=== PATIENT | female | born 1985 | race Caucasian/White ===

== ENCOUNTER 2019-06-22 20:40 | Emergency (ER) | payer BC ==
[2019-06-22 20:56] VITALS: BP 121/78
--- NOTE | 2019-06-22 21:19 | UC ---
Complaint Female HPI - HPI Summary HPI Summary: 33yo female presenting with "feeling off" the past few days. States period started last Friday 06/15 and "it was a thicker flow and a couple days longer than usual" but now almost gone. Patient also notes intermittent aching in lower abd more on R side throughout this menstrual cycle. Denies any currently. States this is not usual for her. Denies abnormal discharge, itching, vaginal pain. Denies urinary symptoms. Notes "looser BMs" with every other BM for the last week. Notes nausea yesterday. Denies vomiting. Denies fever and chills. Patient states she is currently trying to become . H/o miscarriage in 2007. Patient also notes that she took at home test this morning which was negative but requests another tonight. - History Of Current Complaint Chief Complaint: UCGU Stated Complaint: STOMACH ISSUE Time Seen by Provider: 06/22/19 21:14 Hx Obtained From: Patient Hx Last Menstrual Period: 06/15/19 Pain Intensity: 0 - Allergies/Home Medications Allergies/Adverse Reactions: Allergies Allergy/AdvReac Type Severity Reaction Status Date / Time No Known Allergies Allergy Verified 06/22/19 20:57 Home Medications: Home Medications NK [No Home Medications Reported] 06/22/19 [History Confirmed 06/22/19] PMH/Surg Hx/FS Hx/Imm Hx - Surgical History Surgical History: Yes Surgery Procedure, Year, and Place: wisdom teeth - Social History Alcohol Use: None Substance Use Type: None Smoking Status (MU): Never Smoked Tobacco Review of Systems All Other Systems Reviewed And Are Negative: Yes Constitutional: Positive: Negative. Negative: Fever, Chills ENT: Positive: Negative Respiratory: Positive: Negative Cardiovascular: Positive: Negative Gastrointestinal: Positive: Abdominal Pain - lower abd aching last week during period, Diarrhea - loose stool past few days, Nausea - yesterday Genitourinary: Positive: Negative Musculoskeletal: Positive: Negative Neurological: Positive: Negative Physical Exam Triage Information Reviewed: Yes Appearance: Well-Appearing, No Pain Distress, Well-Nourished Vital Signs: Initial Vital Signs Temp 98.8 F 06/22/19 20:47 Pulse 75 06/22/19 20:47 Resp 15 06/22/19 20:47 BP 121/78 06/22/19 20:47 Pulse Ox 100 01/05/20 20:47 Lab Results 06/22/19 06/22/19 Range/Units 21:09 21:11 POC Urine Color Yellow POC Urine Clarity Clear POC Urine pH 5.5 (5-9) POC Ur Specif [place] <= 1.005 L (1.010-1.030) POC Urine Protein Negative (Negative) POC Ur Glucose (UA) Negative (Negative) POC Urine Ketones Negative (Negative) POC Urine Blood Trace-intact (Negative) POC Urine Nitrite Negative (Negative) POC Urine Bilirubin Negative (Negative) POC Urine Urobilinogen 0.2 (Negative) POC U Leukocyte Esteras Negative (Negative) POC Ur Test Negative (Negative) Vital Signs Reviewed: Yes Eyes: Positive: Conjunctiva Clear ENT: Positive: Hearing grossly normal Neck: Positive: Supple Respiratory Exam: Normal Respiratory: Positive: Lungs clear, Normal breath sounds, No respiratory distress Cardiovascular Exam: Normal Cardiovascular: Positive: RRR Abdominal Exam: Normal Abdomen Description: Positive: Nontender, No Organomegaly, Soft. Negative: CVA Tenderness (R), CVA Tenderness (L), Distended, Guarding, McBurney's Point Tenderness Bowel Sounds: Positive: Present - BSx4 Neurological: Positive: Alert Psychological: Positive: Age Appropriate Behavior Complaint Female Dx - Course Course Of Treatment: Discussed likely symptoms caused by menstrual cycle. No current abd pain, negative UA, negative , and VS normal. Instructed to incr fluid intake and fiber to help relieve diarrhea. Instructed to follow up with physician referral and/or OBGYN referral for further evaluation if desired. Instructed to go to ED with any new or worsening symptoms. Patient voiced understanding and agreed with treatment plan. - Differential Dx/Diagnosis Provider Diagnosis: Abnormal menstrual cycle, Acute diarrhea, Encounter for test, result negative Discharge ED - Sign-Out/Discharge Documenting (check all that apply): Patient Departure All imaging exams completed and their final reports reviewed: No Studies - Discharge Plan Condition: Stable Disposition: HOME Patient Education Materials: Acute Diarrhea (ED), Acute Abdominal Pain (ED) Referrals: Amanda Ashton MD [Medical Doctor] - If Needed [facility] [place] [facility] [place]Outside] Additional Instructions: As discussed, your urine is negative for infection today. You urine test was also negative. Increase your fluid and fiber intake to help symptoms of diarrhea. Follow up with the physician referral or the OBGYN referral listed below if symptoms persist. Go to the emergency room if you experience any new or worsening symptoms. - Billing Disposition and Condition Condition: STABLE Disposition: Home
== END 2019-06-22 21:47 | disposition home or self-care (01) ==
LOC: UCEAST 20:40
DX: Z32.02 Encounter for pregnancy test, result negative (principal); R19.7 Diarrhea, unspecified; N92.6 Irregular menstruation, unspecified; R10.31 Right lower quadrant pain; R11.0 Nausea
CPT/HCPCS: 81003; 84702; 99201; G0463